=== PATIENT | male | born 1955 | race Caucasian/White ===

== ENCOUNTER 2019-04-25 22:31 | Inpatient (IN) ==
[2019-04-25 23:25] LABS: Basophils # (auto) 0.03 K/uL (0-0.2); Basophils % (auto) 0.3 %; Eosinophils # (auto) 0.15 K/uL (0-0.5); Eosinophils % (auto) 1.7 %; Hematocrit (blood only) 43.1 % (42-52); Hemoglobin 15.2 g/dL (14.0-18.0); Immature Granulocytes # (auto) 0.02 K/uL (0.00-0.02); Immature Granulocytes % (auto) 0.2 %; Lymphocytes # (auto) 2.62 K/uL (1.2-3.4); Lymphocytes % (auto) 29.5 %; Mean Corpuscular Hemoglobin 33.3 pg (25-34); Mean Corpuscular Hgb Conc 35.3 g/dL (32-36); Mean Corpuscular Volume 94.3 fL (80-100); Mean Platelet Volume 10.3 fL (7.4-10.4); Monocytes # (auto) 1.21 K/uL (0.11-0.59); Monocytes % (auto) 13.6 %; Neutrophils # (auto) 4.85 K/uL (1.4-6.5); Neutrophils % (auto) 54.7 %; Platelet Count 195 K/uL (130-400); RDW Coefficient of Variation 12.7 % (11.5-14.5); RDW Standard Deviation 43.8 fL (36.4-46.3); Red Blood Count 4.57 M/uL (4.7-6.1); White Blood Count 8.88 K/uL (4.8-10.8)
[2019-04-25 23:32] LABS: Alanine Aminotransferase 83 U/L (12-78); Albumin Level 3.6 gm/dl (3.4-5.0); Aspartate Aminotransferase 121 U/L (15-37); BUN Creatinine Ratio 4.9 (10-20); Blood Urea Nitrogen 4 mg/dl (7-18); Calcium 8.9 mg/dl (8.5-10.1); Carbon Dioxide 23 mmol/L (21-32); Chloride 100 mmol/L (98-107); Creatinine Clr Calc Pharmacy 110.7 ml/min; Est GFR (Non-African American) 93.2; Glucose 125 mg/dl (70-99); Potassium 2.8 mmol/L (3.5-5.1); Sodium 134 mmol/L (136-145)
[2019-04-25 23:37] LABS: Albumin Globulin Ratio 0.8 (0.9-2); Alkaline Phosphatase 116 U/L (45-117); Globulin 4.5 gm/dl (2.5-4.0); Total Protein 8.1 gm/dl (6.4-8.2); Troponin I < 0.015 ng/ml (0-0.045)
[2019-04-25] MEDS ORDERED: METOPROLOL TARTRATE 1 MG/ML VIAL IV PRN (23:43)
[2019-04-26] MEDS ORDERED: LORazepam 2 MG/4 ML VIAL IV STA (00:13)
[2019-04-26] MEDS ORDERED: MULTI-VITAMIN INFUSION 10 ML, THIAMINE HCL 100 MG, FOLIC ACID 1 MG in SODIUM CHLORIDE 0... IV ONE (00:19)
[2019-04-26] MEDS: POTASSIUM CHLORIDE / WTR 10 MEQ/100 ML PLCT IV SCH ×2 (00:47→01:51)
[2019-04-26] MEDS ORDERED: POTASSIUM CHLORIDE 10 MEQ TABCR PO STA ×2 (01:45→04:01)
[2019-04-26] MEDS ORDERED: GABAPENTIN 600 MG TAB PO STA (01:45)
[2019-04-26 02:02] LABS: Partial Thromboplastin Time 26.3 Seconds (21.0-31.0)
[2019-04-26 02:11] LABS: Magnesium 1.8 mg/dl (1.8-2.4)
[2019-04-26 03:09] LABS: Influenza A virus by PCR Neg for Influ A (Neg); Influenza B virus by PCR Neg for Influ B (Neg)
[2019-04-26] MEDS ORDERED: MAGNESIUM SULFATE / D5W 1 GM/100 ML BAG IV ONE (03:40)
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
--- NOTE | 2019-04-26 04:32 | Emergency Department Note ---
Entered by Bhargav Braxton acting as a scribe for History of Present Illness General Chief complaint: Cardiac Assessment Stated complaint: TACHY Time Seen by Provider: 04/25/19 23:24 Source: patient History of Present Illness Onset (ago): day(s) (today) Location: chest Pain Consistency: + constant Relieved By: + other ("stomach gurgling") Associated symptoms: + other (Positive for a cough and bilateral foot pain. Negative for changes in his bowels, leg swelling, and SOB.) The patient is a 64 year old male who presents to the emergency department with complaints of constant chest pain beginning today. The patient states that he has been congested for a few days. He notes that he feels like he has mucus in his chest and chest pain after he eats. He reports that his chest pain feels better after his stomach gurgles. He also complains of a cough and bilateral foot pain, but he denies any changes in his bowels, leg swelling, and SOB. The patient states that he has a history of asthma. He notes that he takes atenolol, but he is unsure if he took it today. Home Medications Home Medications Medication Instructions Recorded Confirmed Type albuterol sulfate [Ventolin HFA] 1 puff INHALATION Q4 PRN 04/25/19 04/25/19 History atenolol 50 mg PO DAILY 04/25/19 04/25/19 History atorvastatin 20 mg PO DAILY 04/25/19 04/25/19 History meloxicam 15 mg PO DAILY PRN 04/25/19 04/25/19 History Allergies Allergy/AdvReac Type Severity Reaction Status Date / Time codeine Allergy Unknown racing Verified 04/25/19 23:05 heart ANTIHISTAMINE Allergy Unknown heart Uncoded 04/25/19 23:05 racing Past Med/Surg History Family History (Updated 04/25/19 @ 23:40 by Bhargav Braxton) Other No significant family history Social History Preferred Language: Bulgarian Communication Ability: Impaired 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 and A total of 10 systems reviewed and were otherwise negative Physical Exam Vital Signs Vital Signs - 24 hr 04/25/19 22:38 04/25/19 22:55 04/25/19 23:18 Temperature 36.9 C Temperature Source Oral Pulse Rate 110 H 116 H Pulse Rate from SpO2 Sensor 113 H Respiratory Rate 18 18 Blood Pressure 185/123 H 198/128 H Blood Pressure Mean 143 161 Pulse Oximetry 97 97 95 Oxygen Delivery Method Room Air Room Air Sepsis Recent Fever Within 48 Hours No Sepsis New/Unexplained Change in Mental Status No Sepsis Action Taken by Nursing No Action Required 04/25/19 23:30 04/26/19 00:00 04/26/19 00:03 Temperature Temperature Source Pulse Rate 112 H 114 H 113 H Pulse Rate from SpO2 Sensor 112 H 113 H 112 H Respiratory Rate 18 18 18 Blood Pressure 199/128 H 197/141 H 198/133 H Blood Pressure Mean 137 156 151 Pulse Oximetry 95 95 95 Oxygen Delivery Method Sepsis Recent Fever Within 48 Hours Sepsis New/Unexplained Change in Mental Status Sepsis Action Taken by Nursing 04/26/19 00:05 04/26/19 00:10 04/26/19 00:15 Temperature Temperature Source Pulse Rate 110 H 108 H 104 H Pulse Rate from SpO2 Sensor 109 H 107 H 103 H Respiratory Rate 18 18 18 Blood Pressure 186/129 H 191/130 H 178/122 H Blood Pressure Mean 149 153 144 Pulse Oximetry 96 95 96 Oxygen Delivery Method Sepsis Recent Fever Within 48 Hours Sepsis New/Unexplained Change in Mental Status Sepsis Action Taken by Nursing 04/26/19 00:20 04/26/19 00:25 04/26/19 00:30 Temperature Temperature Source Pulse Rate 105 H 102 H 102 H Pulse Rate from SpO2 Sensor 104 H 102 H 102 H Respiratory Rate 18 18 18 Blood Pressure 187/120 H 172/111 H 169/113 H Blood Pressure Mean 137 127 121 Pulse Oximetry 96 96 96 Oxygen Delivery Method Sepsis Recent Fever Within 48 Hours Sepsis New/Unexplained Change in Mental Status Sepsis Action Taken by Nursing 04/26/19 00:35 04/26/19 00:40 04/26/19 00:45 Temperature Temperature Source Pulse Rate 104 H 106 H 101 H Pulse Rate from SpO2 Sensor 104 H 106 H 102 H Respiratory Rate 18 18 18 Blood Pressure 165/111 H 171/112 H 167/114 H Blood Pressure Mean 123 121 124 Pulse Oximetry 96 97 96 Oxygen Delivery Method Sepsis Recent Fever Within 48 Hours Sepsis New/Unexplained Change in Mental Status Sepsis Action Taken by Nursing 04/26/19 01:00 04/26/19 01:15 04/26/19 01:28 Temperature Temperature Source Pulse Rate 103 H 103 H 101 H Pulse Rate from SpO2 Sensor 103 H 102 H 101 H Respiratory Rate 18 18 18 Blood Pressure 164/112 H 170/106 H 171/110 H Blood Pressure Mean 140 120 125 Pulse Oximetry 97 97 98 Oxygen Delivery Method Sepsis Recent Fever Within 48 Hours Sepsis New/Unexplained Change in Mental Status Sepsis Action Taken by Nursing 04/26/19 01:30 04/26/19 01:45 04/26/19 02:00 Temperature Temperature Source Pulse Rate 101 H 99 H 90 Pulse Rate from SpO2 Sensor 102 H 99 H 91 H Respiratory Rate 18 18 20 Blood Pressure 173/115 H 159/89 H 148/83 H Blood Pressure Mean 125 114 99 Pulse Oximetry 99 96 97 Oxygen Delivery Method Sepsis Recent Fever Within 48 Hours Sepsis New/Unexplained Change in Mental Status Sepsis Action Taken by Nursing 04/26/19 02:15 04/26/19 02:16 04/26/19 02:45 Temperature Temperature Source Pulse Rate 94 H 96 H 103 H Pulse Rate from SpO2 Sensor 95 H 96 H 102 H Respiratory Rate 20 19 20 Blood Pressure 145/85 H 168/114 H Blood Pressure Mean 91 126 Pulse Oximetry 97 96 96 Oxygen Delivery Method Sepsis Recent Fever Within 48 Hours Sepsis New/Unexplained Change in Mental Status Sepsis Action Taken by Nursing 04/26/19 03:00 04/26/19 03:01 04/26/19 03:15 Temperature Temperature Source Pulse Rate 98 H 95 H 99 H Pulse Rate from SpO2 Sensor 98 H 95 H 99 H Respiratory Rate 20 17 19 Blood Pressure 150/107 H 150/105 H Blood Pressure Mean 118 116 Pulse Oximetry 96 96 97 Oxygen Delivery Method Sepsis Recent Fever Within 48 Hours Sepsis New/Unexplained Change in Mental Status Sepsis Action Taken by Nursing 04/26/19 03:30 04/26/19 03:45 04/26/19 04:00 Temperature Temperature Source Pulse Rate 104 H 99 H 106 H Pulse Rate from SpO2 Sensor 103 H 99 H 105 H Respiratory Rate 20 18 21 Blood Pressure 148/104 H 146/92 H 166/106 H Blood Pressure Mean 115 104 119 Pulse Oximetry 95 95 95 Oxygen Delivery Method Sepsis Recent Fever Within 48 Hours Sepsis New/Unexplained Change in Mental Status Sepsis Action Taken by Nursing 04/26/19 04:01 04/26/19 04:19 Temperature Temperature Source Pulse Rate 102 H 98 H Pulse Rate from SpO2 Sensor 102 H Respiratory Rate 20 18 Blood Pressure 146/103 H Blood Pressure Mean Pulse Oximetry 95 95 Oxygen Delivery Method Room Air Sepsis Recent Fever Within 48 Hours Sepsis New/Unexplained Change in Mental Status Sepsis Action Taken by Nursing Vital signs reviewed. Hypertensive. General: Well-appearing male, in no significant distress. HEENT: No scleral icterus, PERRLA, neck supple. Atraumatic. Cardiovascular: Regular rhythm and tachycardic, no extra sounds. Pulmonary: Clear to auscultation bilaterally, normal work of breathing. Abdomen: Soft, nontender, nondistended, positive bowel sounds. Obese abdomen. Musculoskeletal: Atraumatic, no peripheral edema. Neurologic: Patient awake alert and oriented x 3 Skin: Warm, dry, no rash Course Course 2314: The patient was evaluated in room C10. A complete history and physical exam was performed. 0141: I reevaluated and updated the patient. 0142: Upon reevaluation, the patient is stable. I discussed the findings and the treatment plan with the patient. He expresses agreement and understanding. I spoke with Dr. Barbour of the [facility]. The patient will be evaluated for further management. Consultations Consultation #1: I [facility] the [facility] He will evaluate the patient for further management. Time: 01:42 Administered Medications Acetaminophen (Tylenol) 325 mg PO Q6H PRN PRN Reason: Pain or Fever Stop: 05/26/19 04:32 Last Admin: 04/27/19 22:54 Dose: 325 mg Documented by: [id number] Admin: 04/27/19 17:49 Dose: 325 mg Documented by: [id number] Admin: 04/27/19 04:53 Dose: 325 mg Documented by: [id number] Admin: 04/26/19 19:58 Dose: 325 mg Documented by: [id number] Atenolol (Tenormin) 50 mg PO DAILY DONAL Stop: 05/26/19 01:44 Last Admin: 04/28/19 09:18 Dose: 50 mg Documented by: [id number] Admin: 04/27/19 09:18 Dose: 50 mg Documented by: [id number] Admin: 04/26/19 04:52 Dose: 50 mg Documented by: [id number] Clonidine HCl (Catapres) 0.1 mg PO TID PRN PRN Reason: Hypertension Stop: 05/26/19 14:43 Last Admin: 04/27/19 13:19 Dose: 0.1 mg Documented by: [id number] Diclofenac Sodium (Voltaren 1% Top) 4 gm EXT QID [facility] Stop: 05/28/19 10:59 Last Admin: 04/28/19 16:30 Dose: 4 gm Documented by: [id number] Admin: 04/28/19 13:00 Dose: 4 gm Documented by: [id number] Admin: 04/28/19 11:48 Dose: 4 gm Documented by: [id number] Doxycycline Hyclate (Vibramycin) 100 mg PO BID [facility] Stop: 05/03/19 04:32 Last Admin: 04/28/19 09:19 Dose: 100 mg Documented by: [id number] Admin: 04/27/19 20:17 Dose: 100 mg Documented by: [id number] Admin: 04/27/19 09:18 Dose: 100 mg Documented by: [id number] Admin: 04/26/19 19:59 Dose: 100 mg Documented by: [id number] Admin: 04/26/19 04:53 Dose: 100 mg Documented by: [id number] Enoxaparin Sodium (Lovenox) 40 mg SQ QAM [facility] Stop: 05/26/19 08:59 Last Admin: 04/28/19 09:19 Dose: 40 mg Documented by: [id number] Admin: 04/27/19 09:19 Dose: 40 mg Documented by: [id number] Admin: 04/26/19 08:54 Dose: 40 mg Documented by: [id number] Folic Acid (Folvite) 1 mg PO QAM [facility] Stop: 05/27/19 08:59 Last Admin: 04/28/19 09:20 Dose: 1 mg Documented by: [id number] Admin: 04/27/19 09:19 Dose: 1 mg Documented by: [id number] Potassium Chloride/Sodium Chloride (Normal Saline W/20 Meq Kcl) 20 meq in 1,000 mls @ 80 mls/hr IV .[id number] ONE Stop: 04/28/19 18:05 Last Admin: 04/28/19 06:33 Dose: 80 mls/hr Documented by: [id number] Ceftriaxone Sodium 2,000 mg/ (Dextrose) 70 mls @ 100 mls/hr IV Q24H [facility]; Protocol Stop: 05/05/19 06:59 Last Infusion: 04/28/19 09:20 Dose: 0 mls/hr Documented by: [id number] Admin: 04/28/19 08:01 Dose: 100 mls/hr Documented by: [id number] Lorazepam (Ativan) 1 mg PO Q4H PRN PRN Reason: Anxiety Stop: 05/26/19 13:40 Last Admin: 04/26/19 13:51 Dose: 1 mg Documented by: [id number] [facility] Stop: 05/26/19 08:59 Last Admin: 04/28/19 09:19 Dose: 1 tab Documented by: [id number] Admin: 04/27/19 09:18 Dose: 1 tab Documented by: [id number] Admin: 04/26/19 08:54 Dose: 1 tab Documented by: [id number] Thiamine HCl (Vitamin B-1) [facility] Stop: 05/27/19 08:59 Last Admin: 04/28/19 09:19 Dose: 100 mg Documented by: [id number] Admin: 04/27/19 09:18 Dose: 100 mg Documented by: [id number] Discontinued Medications Atenolol (Tenormin) 50 mg PO NOW ONE Stop: 04/26/19 05:29 Last Admin: 04/26/19 06:04 Dose: Not Given Documented by: [id number] Atenolol (Tenormin) 50 mg PO NOW ONE Stop: 04/26/19 08:16 Last Admin: 04/26/19 08:55 Dose: 50 mg Documented by: [id number] Atorvastatin Calcium (Lipitor) 20 mg PO DAILY [facility] Stop: 05/26/19 08:59 Last Admin: 04/26/19 08:53 Dose: 20 mg Documented by: [id number] Clonidine HCl (Catapres) 0.1 mg PO NOW ONE Stop: 04/26/19 14:44 Last Admin: 04/26/19 14:56 Dose: 0.1 mg Documented by: [id number] Gabapentin (Neurontin) 1,200 mg PO NOW STA Stop: 04/26/19 01:46 Last Admin: 04/26/19 02:24 Dose: 1,200 mg Documented by: [id number] Gabapentin (Neurontin) 600 mg PO Q6H [facility] Stop: 04/26/19 14:01 Last Admin: 04/26/19 13:50 Dose: 600 mg Documented by: [id number] Admin: 04/26/19 08:54 Dose: 600 mg Documented by: [id number] Gabapentin (Neurontin) 600 mg PO Q8H [facility] Stop: 04/27/19 14:01 Last Admin: 04/27/19 13:20 Dose: 600 mg Documented by: [id number] Admin: 04/27/19 04:54 Dose: 600 mg Documented by: [id number] Admin: 04/26/19 22:18 Dose: 600 mg Documented by: [id number] Gabapentin (Neurontin) 600 mg PO Q12H [facility] Stop: 04/28/19 12:01 Last Admin: 04/28/19 11:48 Dose: 600 mg Documented by: [id number] Admin: 04/27/19 23:56 Dose: 600 mg Documented by: [id number] Lorazepam (Ativan) 2 mg in 4 mls @ 4 mls/min IV NOW STA Stop: 04/26/19 00:14 Last Admin: 04/26/19 00:18 Dose: 4 mls/min Documented by: [id number] Multivitamins 10 ml/ Thiamine HCl 100 mg/ Folic Acid 1 mg/Sodium Chloride 1,011.2 mls @ 1,011.2 mls/hr IV .Q1H ONE Stop: 04/26/19 01:18 Last Infusion: 04/26/19 04:34 Dose: 0 mls/hr Documented by: [id number] Admin: 04/26/19 00:47 Dose: 1,011.2 mls/hr Documented by: [id number] Potassium Chloride (K Braeden / Wtr) 10 meq in 100 mls @ 100 mls/hr IV Q1H [facility] Stop: 04/26/19 02:29 Last Infusion: 04/26/19 03:02 Dose: 0 mls/hr Documented by: [id number] Admin: 04/26/19 01:51 Dose: 100 mls/hr Documented by: [id number] Infusion: 04/26/19 01:47 Dose: 100 mls/hr Documented by: [id number] Admin: 04/26/19 00:47 Dose: 100 mls/hr Documented by: [id number] Magnesium Sulfate/Dextrose (Magnesium Sulfate / D5w) 1 gm in 100 mls @ 100 mls/hr IV ONE ONE Stop: 04/26/19 04:39 Last Infusion: 04/26/19 05:49 Dose: 0 mls/hr Documented by: [id number] Admin: 04/26/19 04:34 Dose: 100 mls/hr Documented by: [id number] Potassium Chloride 40 meq/ (Sodium Chloride) 1,020 mls @ 50 mls/hr IV .[id number] STA Stop: 04/27/19 00:56 Last Infusion: 04/27/19 01:17 Dose: 0 mls/hr Documented by: [id number] Admin: 04/26/19 04:53 Dose: 50 mls/hr Documented by: [id number] Magnesium Sulfate/Dextrose (Magnesium Sulfate / D5w) 1 gm in 100 mls @ 100 mls/hr IV 1900 ONE Stop: 04/27/19 19:59 Last Infusion: 04/27/19 20:47 Dose: 0 mls/hr Documented by: [id number] Admin: 04/27/19 19:29 Dose: 100 mls/hr Documented by: [id number] Lactated Ringer's (Lr) 1,000 mls @ 500 mls/hr IV .Q2H ONE Stop: 04/28/19 01:13 Last Infusion: 04/28/19 01:58 Dose: 0 mls/hr Documented by: [id number] Admin: 04/27/19 23:47 Dose: 500 mls/hr Documented by: [id number] Lorazepam (Ativan) 1 mg PO NOW STA Stop: 04/26/19 11:28 Last Admin: 04/26/19 11:31 Dose: 1 mg Documented by: [id number] Lorazepam (Ativan) Confirm Administered Dose 1 mg .ROUTE .STK-MED ONE Stop: 04/26/19 11:32 Last Admin: 04/26/19 11:32 Dose: Not Given Documented by: [id number] Lorazepam (Ativan) 1 mg PO NOW STA Stop: 04/27/19 14:07 Last Admin: 04/27/19 14:46 Dose: 1 mg Documented by: [id number] Meloxicam (Mobic) 7.5 mg PO NOW STA Stop: 04/27/19 14:16 Last Admin: 04/27/19 15:32 Dose: 7.5 mg Documented by: [id number] Meloxicam (Mobic) 7.5 mg PO QA DONAL Stop: 05/27/19 18:14 Last Admin: 04/27/19 19:26 Dose: 7.5 mg Documented by: [id number] Metoprolol Tartrate (Lopressor) 5 mg IV Q5M PRN PRN Reason: Tachycardia Stop: 05/25/19 23:42 Last Admin: 04/26/19 00:01 Dose: 5 mg Documented by: [id number] Metoprolol Tartrate (Lopressor) 5 mg IV NOW STA Stop: 04/26/19 04:34 Last Admin: 04/26/19 04:53 Dose: 5 mg Documented by: [id number] Potassium Chloride (Klor-Con M10) 50 meq PO NOW STA Stop: 04/26/19 01:46 Last Admin: 04/26/19 02:24 Dose: 50 meq Documented by: [id number] Potassium Chloride (Klor-Con M10) 50 meq PO NOW STA Stop: 04/26/19 04:02 Last Admin: 04/26/19 04:20 Dose: 50 meq Documented by: [id number] Potassium Chloride (Klor-Con M20) 40 meq PO NOW STA Stop: 04/27/19 18:22 Last Admin: 04/27/19 19:27 Dose: 40 meq Documented by: [id number] Potassium Chloride (Klor-Con M20) 40 meq PO NOW STA Stop: 04/28/19 14:55 Last Admin: 04/28/19 16:29 Dose: 40 meq Documented by: [id number] Medical Decision Making Differential Diagnosis Differential diagnosis: Etiologies such as shingles, musculoskeletal pain, pericarditis, myocarditis, cardiac ischemia, pericardial tamponade, pneumonia, pneumothorax, pleural effusion, hemothorax, pleurisy, aortic pathology, pulmonary embolism, intra- abdominal process, as well as others were considered. Medical Records Attestation: I reviewed the patient's medical records. Home Medications Current Medication List: was personally reviewed by me Laboratory Data Attestation: I reviewed the patient's lab results. Result diagrams: 04/28/19 11:06 04/28/19 11:06 Lab Results 04/25/19 04/25/19 04/25/19 Range/Units Unknown Unknown Unknown WBC 8.88 (4.8-10.8) K/uL RBC 4.57 L (4.7-6.1) M/uL Hgb 15.2 (14.0-18.0) g/dL Hct 43.1 (42-52) % MCV 94.3 (80-100) fL MCH 33.3 (25-34) pg MCHC 35.3 (32-36) g/dL RDW Std Deviation 43.8 (36.4-46.3) fL RDW Coeff of Chris 12.7 (11.5-14.5) % Plt Count 195 (130-400) K/uL MPV 10.3 (7.4-10.4) fL Immature Gran % (Auto) 0.2 % Neut % (Auto) 54.7 % Lymph % (Auto) 29.5 % [place] % (Auto) 13.6 % Eos % (Auto) 1.7 % Baso % (Auto) 0.3 % Immature Gran # (Auto) 0.02 (0.00-0.02) K/uL Neut # (Auto) 4.85 (1.4-6.5) K/uL Lymph # (Auto) 2.62 (1.2-3.4) K/uL [place] # (Auto) 1.21 H (0.11-0.59) K/uL Eos # (Auto) 0.15 (0-0.5) K/uL Baso # (Auto) 0.03 (0-0.2) K/uL APTT 26.3 (21.0-31.0) Seconds PTT Ratio 1.0 Sodium 134 L (136-145) mmol/L Potassium 2.8 L (3.5-5.1) mmol/L Chloride 100 (98-107) mmol/L Carbon Dioxide 23 (21-32) mmol/L Anion Gap 11.0 (3-11) BUN 4 L (7-18) mg/dl Creatinine 0.84 (0.6-1.4) mg/dl Est Cr Clr Drug Dosing 110.7 ml/min Est GFR ( Amer) 108.0 Est GFR (Non-Af Amer) 93.2 BUN/Creatinine Ratio 4.9 L (10-20) Glucose 125 H (70-99) mg/dl Calcium 8.9 (8.5-10.1) mg/dl Magnesium 1.8 (1.8-2.4) mg/dl Total Bilirubin 1.0 (0.2-1) mg/dl AST 121 H (15-37) U/L ALT 83 H (12-78) U/L Alkaline Phosphatase 116 (45-117) U/L Troponin I < 0.015 (0-0.045) ng/ml Total Protein 8.1 (6.4-8.2) gm/dl Albumin 3.6 (3.4-5.0) gm/dl Globulin 4.5 H (2.5-4.0) gm/dl Albumin/Globulin Ratio 0.8 L (0.9-2) TSH 3.830 (0.300-4.500) uIu/ml Ethyl Alcohol mg/dL (0-3) mg/dl Influenza Type A (PCR) (Neg) Influenza Type B (PCR) (Neg) 04/26/19 04/26/19 Range/Units 00:54 02:30 WBC (4.8-10.8) K/uL RBC (4.7-6.1) M/uL Hgb (14.0-18.0) g/dL Hct (42-52) % MCV (80-100) fL MCH (25-34) pg MCHC (32-36) g/dL RDW Std Deviation (36.4-46.3) fL RDW Coeff of Chris (11.5-14.5) % Plt Count (130-400) K/uL MPV (7.4-10.4) fL Immature Gran % (Auto) % Neut % (Auto) % Lymph % (Auto) % [place] % (Auto) % Eos % (Auto) % Baso % (Auto) % Immature Gran # (Auto) (0.00-0.02) K/uL Neut # (Auto) (1.4-6.5) K/uL Lymph # (Auto) (1.2-3.4) K/uL [place] # (Auto) (0.11-0.59) K/uL Eos # (Auto) (0-0.5) K/uL Baso # (Auto) (0-0.2) K/uL APTT (21.0-31.0) Seconds PTT Ratio Sodium (136-145) mmol/L Potassium (3.5-5.1) mmol/L Chloride (98-107) mmol/L Carbon Dioxide (21-32) mmol/L Anion Gap (3-11) BUN (7-18) mg/dl Creatinine (0.6-1.4) mg/dl Est Cr Clr Drug Dosing ml/min Est GFR ( Amer) Est GFR (Non-Af Amer) BUN/Creatinine Ratio (10-20) Glucose (70-99) mg/dl Calcium (8.5-10.1) mg/dl Magnesium (1.8-2.4) mg/dl Total Bilirubin (0.2-1) mg/dl AST (15-37) U/L ALT (12-78) U/L Alkaline Phosphatase (45-117) U/L Troponin I (0-0.045) ng/ml Total Protein (6.4-8.2) gm/dl Albumin (3.4-5.0) gm/dl Globulin (2.5-4.0) gm/dl Albumin/Globulin Ratio (0.9-2) TSH (0.300-4.500) uIu/ml Ethyl Alcohol mg/dL < 3.0 (0-3) mg/dl Influenza Type A (PCR) Neg for Influ A (Neg) Influenza Type B (PCR) Neg for Influ B (Neg) Imaging Data Attestation: I personally reviewed and interpreted this imaging study as follows: My Impression: CHEST X-RAY: No focal lung consolidation. No failure. Normal mediastinal silhouette. ECG Data Attestation: I personally reviewed and interpreted this ECG as follows: Indication: + chest pain Rate (beats per minute): 110 Rhythm: + sinus tachycardia ECG ST segments: no ST depression and no ST elevation ECG Findings: + PACs Additional Comments: Previous inferior infarct, prolonged QT at 470. Blood Pressure Blood Pressure Findings: Elevated blood pressure Blood Pressure Disposition: further management by hospitalist MDM Narrative This pt was evaluated and appeared to be in no significant distress. Pt is noted to be tachycardic and hypertensive. Pt has a h/o ETOH dependency, he was given IV banana bag. He was also given IV ativan. Pt later stated he failed to take his atenolol today, was given IV metoprolol 5 mg. EKG reveals no acute ischemia, with ST. Previous inferior infarct. CXR is clear. Lab work is significant for hypokalemia at 2.8. Pt was given 20 Meq K IV. Trop is negative. Given ETOH history and C/P complaints, the hospitalist service was consulted for further management. Pt understands and agrees. Impression & Plan Hypertensive urgency, Alcohol withdrawal, Substernal chest pain, Hypokalemia Discharge Plan Visit Data *Final* Discharge Date/Time: 04/26/19 04:19 Chief Complaint: Cardiac Assessment Stated Complaint: TACHY ED Provider: Deanna Plunkett Discharge Problem: Hypertensive urgency, Alcohol withdrawal, Substernal chest pain, Hypokalemia Patient Disposition: Admitted As Inpatient Discharge Instructions Interventions: ED Discharge Assessment Last Done: 04/26/19 04:19 Discharge Problem: Alcohol withdrawal Qualifiers: Complication of substance-induced condition: with unspecified complication Qualified Code(s): F10.239 - Alcohol dependence with withdrawal, unspecified The scribe's documentation has been prepared under my direction and personally reviewed by me in its entirety. I confirm that the note above accurately reflects all work, treatment, procedures, and medical decision making performed by me.
[2019-04-26] MEDS ORDERED: XOPENEX/ATROVENT 1.25mg/0.5MG NEB COMBO NEB PRN (04:33)
[2019-04-26] MEDS ORDERED: LORazepam 2 MG/4 ML VIAL IV PRN (04:33)
[2019-04-26] MEDS ORDERED: ATIVAN IV ALCOHOL WITHDRAWL IV PRN (04:33)
[2019-04-26] MEDS ORDERED: LEVALBUTEROL 1.25MG/0.5ML NEB INH PRN (04:33)
[2019-04-26] MEDS ORDERED: GABAPENTIN 1200MG ALCOHOL WITHDRAWAL LOAD PO STA (04:33)
[2019-04-26] MEDS ORDERED: METOPROLOL TARTRATE 1 MG/ML VIAL IV STA (04:33)
[2019-04-26] MEDS ORDERED: IPRATROPIUM BROMIDE NEB SOLN 0.02% 2.5 ML VIAL INH PRN (04:33)
[2019-04-26] MEDS ORDERED: POTASSIUM CHLORIDE 40 MEQ in SODIUM CHLORIDE 0.9% 1000ML 1,000 ML IV STA (04:33)
[2019-04-26] MEDS ORDERED: LORazepam 3 MG/6 ML VIAL IV PRN (04:33)
[2019-04-26] MEDS ORDERED: LORazepam 1 MG/2 ML VIAL IV PRN (04:33)
[2019-04-26] MEDS: ATENOLOL 50 MG TABLET PO SCH (04:52)
[2019-04-26] MEDS: DOXYCYCLINE HYCLATE 100 MG CAP PO SCH ×2 (04:53→19:59)
[2019-04-26] MEDS ORDERED: ATENOLOL 50 MG TABLET PO ONE ×2 (05:28→08:15)
--- NOTE | 2019-04-26 06:19 | XRay Report ---
XR chest 1V portable HISTORY: 64 years-old Male tachycardia acute tachycardia COMPARISON: None available TECHNIQUE: Portable AP view of the chest FINDINGS: Cardiomediastinal and hilar silhouettes are within normal limits. No pneumothorax, pleural effusion, focal airspace consolidation or overt pulmonary edema. Mild degenerative changes of the spine. IMPRESSION: No acute process. The above report was generated using voice recognition software. It may contain grammatical, syntax o r spelling errors. Electronically signed by: Santos Jc M.D. 04/26/2019 6:18 AM
[2019-04-26 06:37] LABS: Basophils # (auto) 0.04 K/uL (0-0.2); Basophils % (auto) 0.4 %; Eosinophils # (auto) 0.06 K/uL (0-0.5); Eosinophils % (auto) 0.6 %; Hematocrit (blood only) 38.8 % (42-52); Hemoglobin 13.3 g/dL (14.0-18.0); Immature Granulocytes # (auto) 0.03 K/uL (0.00-0.02); Immature Granulocytes % (auto) 0.3 %; Lymphocytes # (auto) 2.25 K/uL (1.2-3.4); Lymphocytes % (auto) 24.4 %; Mean Corpuscular Hemoglobin 32.8 pg (25-34); Mean Corpuscular Hgb Conc 34.3 g/dL (32-36); Mean Corpuscular Volume 95.8 fL (80-100); Mean Platelet Volume 9.7 fL (7.4-10.4); Monocytes # (auto) 1.24 K/uL (0.11-0.59); Monocytes % (auto) 13.4 %; Neutrophils # (auto) 5.62 K/uL (1.4-6.5); Neutrophils % (auto) 60.9 %; Platelet Count 146 K/uL (130-400); RDW Coefficient of Variation 12.8 % (11.5-14.5); RDW Standard Deviation 44.7 fL (36.4-46.3); Red Blood Count 4.05 M/uL (4.7-6.1); White Blood Count 9.24 K/uL (4.8-10.8)
[2019-04-26 07:11] LABS: Albumin Level 2.9 gm/dl (3.4-5.0); BUN Creatinine Ratio 3.9 (10-20); Bilirubin Direct 0.3 mg/dl (0-0.2); Bilirubin,Total 1.1 mg/dl (0.2-1); Calcium 8.3 mg/dl (8.5-10.1); Creatinine Clr Calc Pharmacy 101.7 ml/min; Est GFR (African American) 103.6; Est GFR (Non-African American) 89.4; Potassium 3.9 mmol/L (3.5-5.1); Total Protein 6.7 gm/dl (6.4-8.2)
[2019-04-26] MEDS: ENOXAPARIN INJ 40 MG/0.4 ML SYR SQ SCH (08:54)
[2019-04-26] MEDS: GABAPENTIN 600 MG TAB PO SCH ×3 (08:54→22:18)
[2019-04-26] MEDS: MULTIVITAMIN TAB PO SCH (08:54)
[2019-04-26] MEDS ORDERED: ATORVASTATIN 20 MG TAB PO SCH (09:00)
[2019-04-26] MEDS ORDERED: LORazepam 1 MG TAB PO STA (11:27)
[2019-04-26] MEDS ORDERED: LORazepam 1 MG TAB ONE (11:31)
[2019-04-26] MEDS: LORazepam 1 MG TAB PO PRN (13:51)
[2019-04-26] MEDS ORDERED: cloNIDine HCL 0.1 MG TAB PO ONE (14:43)
[2019-04-26] MEDS: ACETAMINOPHEN 325 MG TAB PO PRN (19:58)
--- NOTE | 2019-04-26 20:21 | Hospitalist Progress Note ---
Date of Service April 26, 2019 Subjective Patient seen and examined at the bedside. Patient is lying in bed, comfortable, however quite hypertensive, and occasionally slightly tachycardic. After 1 mg of p.o. Ativan blood pressure decreased. Patient says that he was previously hospitalized here because he passed out from drinking years ago. He was seeing a therapist for alcohol use. He decided to quit drinking, which I encouraged him to continue to do so however safely. Explained the reason why we are giving him Ativan. As hypertension not completely controlled, added clonidine as needed. Denies any visual or auditory hallucinations. Denies any prior history of seizures. Denies any abdominal pain nausea, vomiting, headache, chest pain, palpitations, shortness of breath. Lungs are clear to auscultation bilaterally, without any wheezing, abdomen is soft nontender nondistended, heart sounds are regular but slightly tachycardic. We will continue to closely monitor. Results & Data Vital Signs (Past 12 Hours) Vital Signs Temp Pulse Resp BP BP Pulse Ox 04/26/19 19:55 37.4 C 105 H 18 146/87 H 04/26/19 15:56 158/94 H 04/26/19 15:09 36.7 C 93 H 20 192/106 H 96 04/26/19 14:30 186/113 H 04/26/19 12:03 184/108 H 04/26/19 11:16 36.6 C 80 18 199/114 H 200/104 H 98
[2019-04-27] MEDS: ACETAMINOPHEN 325 MG TAB PO PRN ×3 (04:53→22:54)
[2019-04-27] MEDS: GABAPENTIN 600 MG TAB PO SCH ×3 (04:54→23:56)
[2019-04-27] MEDS: ATENOLOL 50 MG TABLET PO SCH (09:18)
[2019-04-27] MEDS: THIAMINE HCL 100 MG TAB PO SCH (09:18)
[2019-04-27] MEDS: MULTIVITAMIN TAB PO SCH (09:18)
[2019-04-27] MEDS: DOXYCYCLINE HYCLATE 100 MG CAP PO SCH ×2 (09:18→20:17)
[2019-04-27] MEDS: ENOXAPARIN INJ 40 MG/0.4 ML SYR SQ SCH (09:19)
[2019-04-27] MEDS: FOLIC ACID 1 MG TAB PO SCH (09:19)
[2019-04-27] MEDS: cloNIDine HCL 0.1 MG TAB PO PRN (13:19)
[2019-04-27] MEDS ORDERED: LORazepam 1 MG TAB PO STA (14:06)
[2019-04-27] MEDS ORDERED: MELOXICAM 7.5 MG TAB PO STA (14:15)
--- NOTE | 2019-04-27 15:18 | Hospitalist Progress Note ---
Date of Service April 27, 2019 Assessment & Plan (1) Palpitations: and hypertension Multifactorial : Hypertensive urgency from alcohol withdrawal, missed beta-brendan dose Anxiety, personal stress, hypokalemia contributory Complicated bronchitis, no sepsis -Provided with oral Ativan as needed, and clonidine for uncontrolled hypertension -blood pressure then much improved -Restarted home beta-brendan, may need titration -Continue to closely monitor on telemetry -DT precautions, anxiolytic PRN -Follow LFTs, GI consult with progression Hypokalemia, Hypomagnesemia - replete and monitor Hyperlipidemia on statin Rx Alcoholic hepatitis -Follow LFTs, GI consult with progression Complicated bronchitis -Continue doxycycline Leukocytosis - mild - increased from yesterday, patient already on doxycycline, for bronchitis - no signs of any worsening, no worsening cough, no fever - will re-check tmrw and will cont. to closely monitor Mood disorder, stable, patient prefers stable off medications. Prediabetes -as per records -recent outpatient hemoglobin A1c of 6.20 December 2018 past tobacco abuse DVT prophylaxis: Lovenox subcu Full code Subjective Patient is lying in bed, in no acute distress. Denies any fevers, chills, headaches, chest pain, palpitations, shortness of breath, abdominal pain, nausea or vomiting. He also denies any visual or auditory hallucinations. 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 He says he takes meloxicam for that, says that previously was evaluated by orthopedics. At that time meloxicam was recommended and he takes it on as-needed basis. Yesterday patient was quite hypertensive, received Ativan, and clonidine which much improved his blood pressure. Review of Systems Review of Systems: All systems reviewed & are unremarkable except as noted in HPI & below Constitutional: no fever and no chills Respiratory: no cough, no dyspnea, no hemoptysis and no pain on inspiration Cardiovascular: no chest pain, no palpitations and no edema Gastrointestinal: no abdominal pain, no nausea and no vomiting Physical Exam Physical Exam: GENERAL: Laying in bed, in no acute distress HEENT: Normocephalic, atraumatic, PERRL, EOMI, pink palpebral conjunctivae, dry oral mucosa NECK : Supple, normal to inspection, no lad CHEST : Normal to inspection HEART : RRR, no murmurs noted ABDOMEN: soft, non-distended, nontender to palpation, + bowel sounds EXTREMITIES : No LE swelling/tenderness,Moves all 4 extremities spontaneously and without difficulty, has mild tremor in both hands SKIN: Normal color, warm NEUROLOGIC : Alert and oriented x3,, no facial asymmetry, speech fluent, mildly tremulous irene. hands, moves all 4 extremities spontaneously Results & Data Vital Signs (Past 12 Hours) Vital Signs Temp Pulse Resp BP Pulse Ox 04/27/19 14:52 37.2 C 93 H 20 161/85 H 96 04/27/19 11:20 36.8 C 89 18 181/96 H 96 04/27/19 07:27 36.7 C 90 18 156/89 H 96 04/27/19 05:51 148/86 H 04/27/19 04:58 36.4 C L 84 18 172/92 H 97 Laboratory Results 04/27/19 04/27/19 Range/Units 16:25 16:25 WBC 13.69 H (4.8-10.8) K/uL RBC 3.83 L (4.7-6.1) M/uL Hgb 12.7 L (14.0-18.0) g/dL Hct 37.1 L (42-52) % MCV 96.9 (80-100) fL MCH 33.2 (25-34) pg MCHC 34.2 (32-36) g/dL RDW Std Deviation 45.1 (36.4-46.3) fL RDW Coeff of Chris 12.8 (11.5-14.5) % Plt Count 146 (130-400) K/uL MPV 9.8 (7.4-10.4) fL Immature Gran % (Auto) 0.4 % Neut % (Auto) 66.6 % Lymph % (Auto) 19.1 % [place] % (Auto) 13.5 % Eos % (Auto) 0.2 % Baso % (Auto) 0.2 % Immature Gran # (Auto) 0.05 H (0.00-0.02) K/uL Neut # (Auto) 9.11 H (1.4-6.5) K/uL Lymph # (Auto) 2.62 (1.2-3.4) K/uL [place] # (Auto) 1.85 H (0.11-0.59) K/uL Eos # (Auto) 0.03 (0-0.5) K/uL Baso # (Auto) 0.03 (0-0.2) K/uL Sodium 132 L (136-145) mmol/L Potassium 3.4 L (3.5-5.1) mmol/L Chloride 103 (98-107) mmol/L Carbon Dioxide 22 (21-32) mmol/L Anion Gap 7.0 (3-11) BUN 7 (7-18) mg/dl Creatinine 0.81 (0.6-1.4) mg/dl Est Cr Clr Drug Dosing 113.8 ml/min Est GFR ( Amer) 109.6 Est GFR (Non-Af Amer) 94.6 BUN/Creatinine Ratio 8.2 L (10-20) Glucose 141 H (70-99) mg/dl Calcium 8.7 (8.5-10.1) mg/dl Magnesium 1.7 L (1.8-2.4) mg/dl Medications Administered Current Inpatient Medications Acetaminophen (Tylenol) 325 mg PO Q6H PRN PRN Reason: Pain or Fever Stop: 05/26/19 04:32 Last Admin: 04/27/19 04:53 Dose: 325 mg Documented by: Atenolol (Tenormin) 50 mg PO DAILY [facility] Stop: 05/26/19 01:44 Last Admin: 04/27/19 09:18 Dose: 50 mg Documented by: Clonidine HCl (Catapres) 0.1 mg PO TID PRN PRN Reason: Hypertension Stop: 05/26/19 14:43 Last Admin: 04/27/19 13:19 Dose: 0.1 mg Documented by: Doxycycline Hyclate (Vibramycin) 100 mg PO BID [facility] Stop: 05/03/19 04:32 Last Admin: 04/27/19 09:18 Dose: 100 mg Documented by: Enoxaparin Sodium (Lovenox) 40 mg SQ QAM [facility] Stop: 05/26/19 08:59 Last Admin: 04/27/19 09:19 Dose: 40 mg Documented by: Folic Acid (Folvite) 1 mg PO QAM [facility] Stop: 05/27/19 08:59 Last Admin: 04/27/19 09:19 Dose: 1 mg Documented by: Gabapentin (Neurontin) 600 mg PO Q12H [facility] Stop: 04/28/19 12:01 Gabapentin (Neurontin) 600 mg PO Q24H [facility] Stop: 04/29/19 12:01 Lorazepam (Ativan) 1 mg in 2 mls @ 2 mls/min IV UD PRN; Protocol PRN Reason: EtOH Withdrawl AWSS Score 6,7 Stop: 05/26/19 04:32 Lorazepam (Ativan) 2 mg in 4 mls @ 4 mls/min IV UD PRN; Protocol PRN Reason: EtOH Withdrawl AWSS Score 8,9 Stop: 05/26/19 04:32 Lorazepam (Ativan) 3 mg in 6 mls @ 4 mls/min IV ONCE PRN; Protocol PRN Reason: EtOH Withdrawl AWSS Score >=10 Stop: 05/26/19 04:32 Ipratropium [place] (Atrovent 0.02% 0.5mg/2.5ml) 0.5 mg INH Q4H PRN PRN Reason: Shortness Of Breath Or Wheezing Stop: 05/26/19 04:32 Levalbuterol HCl (Xopenex 1.25mg/0.5ml Neb) 1.25 mg INH Q4H PRN PRN Reason: Shortness Of Breath Or Wheezing Stop: 05/26/19 04:32 Lorazepam (Ativan) 1 mg PO Q4H PRN PRN Reason: Anxiety Stop: 05/26/19 13:40 Last Admin: 04/26/19 13:51 Dose: 1 mg Documented by: Multivitamins (Multivitamin Tab) 1 tab PO [facility] Stop: 05/26/19 08:59 Last Admin: 04/27/19 09:18 Dose: 1 tab Documented by: Thiamine HCl (Vitamin B-1) 100 mg PO [facility] Stop: 05/27/19 08:59 Last Admin: 04/27/19 09:18 Dose: 100 mg Documented by:
[2019-04-27 16:34] LABS: Basophils # (auto) 0.03 K/uL (0-0.2); Basophils % (auto) 0.2 %; Eosinophils # (auto) 0.03 K/uL (0-0.5); Eosinophils % (auto) 0.2 %; Hematocrit (blood only) 37.1 % (42-52); Hemoglobin 12.7 g/dL (14.0-18.0); Immature Granulocytes # (auto) 0.05 K/uL (0.00-0.02); Immature Granulocytes % (auto) 0.4 %; Lymphocytes # (auto) 2.62 K/uL (1.2-3.4); Lymphocytes % (auto) 19.1 %; Mean Corpuscular Hemoglobin 33.2 pg (25-34); Mean Corpuscular Hgb Conc 34.2 g/dL (32-36); Mean Corpuscular Volume 96.9 fL (80-100); Mean Platelet Volume 9.8 fL (7.4-10.4); Monocytes # (auto) 1.85 K/uL (0.11-0.59); Monocytes % (auto) 13.5 %; Neutrophils # (auto) 9.11 K/uL (1.4-6.5); Neutrophils % (auto) 66.6 %; Platelet Count 146 K/uL (130-400); RDW Coefficient of Variation 12.8 % (11.5-14.5); RDW Standard Deviation 45.1 fL (36.4-46.3); Red Blood Count 3.83 M/uL (4.7-6.1); White Blood Count 13.69 K/uL (4.8-10.8)
[2019-04-27 16:51] LABS: BUN Creatinine Ratio 8.2 (10-20); Calcium 8.7 mg/dl (8.5-10.1); Creatinine Clr Calc Pharmacy 113.8 ml/min; Est GFR (African American) 109.6; Est GFR (Non-African American) 94.6; Magnesium 1.7 mg/dl (1.8-2.4); Potassium 3.4 mmol/L (3.5-5.1)
[2019-04-27] MEDS ORDERED: MELOXICAM 7.5 MG TAB PO SCH (18:15)
[2019-04-27] MEDS ORDERED: POTASSIUM CHLORIDE 20 MEQ TABCR PO STA (18:21)
[2019-04-27] MEDS ORDERED: MAGNESIUM SULFATE / D5W 1 GM/100 ML BAG IV ONE (19:00)
[2019-04-27] MEDS ORDERED: LACTATED RINGER'S 1,000 ML IV ONE (23:14)
[2019-04-28 00:21] LABS: INR 1.2 (0.9-1.1); Prothrombin Time 11.7 Seconds (9.0-12.0)
[2019-04-28 00:26] LABS: Albumin Level 2.5 gm/dl (3.4-5.0); BUN Creatinine Ratio 8.8 (10-20); Calcium 8.6 mg/dl (8.5-10.1); Est GFR (African American) 98.3; Est GFR (Non-African American) 84.9; Magnesium 1.9 mg/dl (1.8-2.4); Potassium 3.6 mmol/L (3.5-5.1)
[2019-04-28 00:34] LABS: Albumin Globulin Ratio 0.6 (0.9-2); Bilirubin,Total 1.7 mg/dl (0.2-1); Globulin 4.4 gm/dl (2.5-4.0); Total Protein 6.9 gm/dl (6.4-8.2)
[2019-04-28] MEDS ORDERED: NSS + 20MEQ KCL 20 MEQ/1,000 ML BAG IV ONE (05:36)
--- NOTE | 2019-04-28 05:38 | Communication Note ---
Date of Service: April 28, 2019 Made aware by RN of fever spike last night. WBC 13 04/27 sodium 131 Cough unchanged as per RN Chest x-ray as per my interpretation : Elevated hemidiaphragm right, possible infiltrate right lower lobe AP Sepsis secondary to CAP Hyponatremia CS, check lactic acid Add Ceftriaxone to Doxycycline IVF, hold NSAIDs for now given hyponatremia Will relay to AM provider.
[2019-04-28 06:54] LABS: Appearance Urine Clear (Clear); Bacteria Urine Automated Negative (Negative); Bilirubin Urine Negative (Negative); Blood Urine Negative (Negative); Color Urine Dark Yellow; Glucose Urine UA Negative (Negative); Ketones Urine Negative (Negative); Leukocyte Esterase Urine Negative (Negative); Nitrite Urine Negative (Negative); Protein Urine Trace (Negative); RBC Urine Automated 0-4 /hpf (0-4); Specific Gravity Urine 1.014 (1.000-1.030); Urobilinogen Urine Positive (Negative)
--- NOTE | 2019-04-28 07:24 | XRay Report ---
XR chest 1V portable HISTORY: 64 years-old Male fever acute fever COMPARISON: Chest radiograph 04/25/2019 TECHNIQUE: Portable AP view of the chest FINDINGS: Cardiomediastinal and hilar silhouettes are unchanged. Mild right hemidiaphragmatic elevation with pr ogressive right greater basilar opacities. Mild subsegmental left basilar atelectasis. No pneumothora x, large pleural effusion or overt pulmonary edema. The bones appear grossly intact. IMPRESSION: Mild right hemidiaphragmatic elevation with right lung base opacities suggestive of atele ctasis versus pneumonitis. The above report was generated using voice recognition software. It may contain grammatical, syntax o r spelling errors. Electronically signed by: Santos Jc M.D. 04/28/2019 7:23 AM
[2019-04-28] MEDS: cefTRIAXone SODIUM 2,000 MG in DEXTROSE 5% 50 ML IV SCH (08:01)
[2019-04-28] MEDS: ATENOLOL 50 MG TABLET PO SCH (09:18)
[2019-04-28] MEDS: DOXYCYCLINE HYCLATE 100 MG CAP PO SCH ×2 (09:19→20:11)
[2019-04-28] MEDS: THIAMINE HCL 100 MG TAB PO SCH (09:19)
[2019-04-28] MEDS: MULTIVITAMIN TAB PO SCH (09:19)
[2019-04-28] MEDS: ENOXAPARIN INJ 40 MG/0.4 ML SYR SQ SCH (09:19)
[2019-04-28] MEDS: FOLIC ACID 1 MG TAB PO SCH (09:20)
--- NOTE | 2019-04-28 11:04 | Hospitalist Progress Note ---
Date of Service April 28, 2019 Assessment & Plan (1) Palpitations: and hypertension Multifactorial : Hypertensive urgency from alcohol withdrawal, missed beta-brendan dose Anxiety, personal stress, hypokalemia contributory Complicated bronchitis, no sepsis on admission however last evening (04/27), WBC elevated, then later at night temp.spiked fever 38.8 Celsius (UA negative, blood cltx - pending, CXR suggestive of pneumonitis) Pt likely has CAP - Ceftriaxone was added to doxycycline HTN from etoh withdrawal -Provided with oral Ativan as needed, and clonidine for uncontrolled hypertension -blood pressure then much improved -Restarted home beta-brendan, may need titration -Continue to closely monitor on telemetry -DT precautions, anxiolytic PRN -Follow LFTs, GI consult with progression Hypokalemia, Hypomagnesemia - replete and monitor Hyponatremia - Na 132 - will switch NSAIDs to topical for arthritic pain, and will cont. to monitor Hyperlipidemia on statin Rx Alcoholic hepatitis -Follow LFTs, GI consult with progression Complicated bronchitis -Continue doxycycline Leukocytosis - mild - increased from yesterday, patient already on doxycycline, for bronchitis - spiked fever at night 38.8C - blood cltx - pending, UA - negative, added ceftriaxone for CAP Mood disorder, stable, patient prefers stable off medications. Prediabetes -as per records -recent outpatient hemoglobin A1c of 6.20 December 2018 past tobacco abuse DVT prophylaxis: Lovenox subcu Full code Subjective Patient is currently sitting up in the chair, in no acute distress. However last night he spiked fever 38.8 Celsius, he remembers that he woke up sweaty. The night physician was contacted, obtain blood cultures, chest x-ray, UA. Patient is currently on doxycycline, he was also started on ceftriaxone. Currently patient denies any fevers, chills, headaches, chest pain, palpitations, shortness of breath, abdominal pain, nausea or vomiting. He also denies any visual or auditory hallucinations. He is continues to have arthritic pain in his wrists. At home he takes meloxicam for that prn, previously was evaluated by orthopedics. Review of Systems Review of Systems: All systems reviewed & are unremarkable except as noted in HPI & below Constitutional: + body aches (wrist pain); no fever, no chills and no fatigue Respiratory: + cough; no dyspnea Cardiovascular: no chest pain, no dyspnea on exertion, no palpitations and no edema Gastrointestinal: no abdominal pain, no nausea and no vomiting Physical Exam Physical Exam: GENERAL: Sitting up in the chair, in no acute distress HEENT: Normocephalic, atraumatic, PERRL, EOMI, pink palpebral conjunctivae NECK : Supple, normal to inspection, no lad CHEST : Normal to inspection HEART : RRR, no murmurs noted ABDOMEN: soft, non-distended, nontender to palpation, + bowel sounds EXTREMITIES : No LE swelling/tenderness,Moves all 4 extremities spontaneously and without difficulty SKIN: dry, warm, no rashes or lesions NEUROLOGIC : Alert and oriented x3, no facial asymmetry, speech fluent, moves all 4 extremities spontaneously Results & Data Vital Signs (Past 12 Hours) Vital Signs Temp Pulse Pulse Resp BP BP Pulse Ox 04/28/19 08:00 36.8 C 75 18 150/77 H 98 04/28/19 04:00 37.1 C 68 18 141/72 H 96 04/28/19 00:06 98 H 04/27/19 23:37 38.8 C H 99 H 19 130/77 95 Laboratory Results 04/28/19 04/27/19 04/27/19 Range/Units 06:30 23:40 23:40 WBC (4.8-10.8) K/uL RBC (4.7-6.1) M/uL Hgb (14.0-18.0) g/dL Hct (42-52) % MCV (80-100) fL MCH (25-34) pg MCHC (32-36) g/dL RDW Std Deviation (36.4-46.3) fL RDW Coeff of Chris (11.5-14.5) % Plt Count (130-400) K/uL MPV (7.4-10.4) fL Immature Gran % (Auto) % Neut % (Auto) % Lymph % (Auto) % [place] % (Auto) % Eos % (Auto) % Baso % (Auto) % Immature Gran # (Auto) (0.00-0.02) K/uL Neut # (Auto) (1.4-6.5) K/uL Lymph # (Auto) (1.2-3.4) K/uL [place] # (Auto) (0.11-0.59) K/uL Eos # (Auto) (0-0.5) K/uL Baso # (Auto) (0-0.2) K/uL PT (9.0-12.0) Seconds INR (0.9-1.1) Sodium 131 L (136-145) mmol/L Potassium 3.6 (3.5-5.1) mmol/L Chloride 102 (98-107) mmol/L Carbon Dioxide 24 (21-32) mmol/L Anion Gap 6.0 (3-11) BUN 8 (7-18) mg/dl Creatinine 0.95 (0.6-1.4) mg/dl Est Cr Clr Drug Dosing 97.0 ml/min Est GFR ( Amer) 98.3 Est GFR (Non-Af Amer) 84.9 BUN/Creatinine Ratio 8.8 L (10-20) Glucose 136 H (70-99) mg/dl Osmolality 275 L (280-300) mOsm/kg Lactate (0.4-2.0) mmol/L Calcium 8.6 (8.5-10.1) mg/dl Magnesium 1.9 (1.8-2.4) mg/dl Total Bilirubin 1.7 H D (0.2-1) mg/dl AST 29 (15-37) U/L ALT 32 (12-78) U/L Alkaline Phosphatase 76 (45-117) U/L Total Protein 6.9 (6.4-8.2) gm/dl Albumin 2.5 L (3.4-5.0) gm/dl Globulin 4.4 H (2.5-4.0) gm/dl Albumin/Globulin Ratio 0.6 L (0.9-2) Urine Color Dark Yellow Urine Appearance Clear (Clear) Urine pH 6.0 (4.5-7.5) Ur Specific [place] 1.014 (1.000-1.030) Urine Protein Trace H (Negative) Urine Glucose (UA) Negative (Negative) Urine Ketones Negative (Negative) Urine Blood Negative (Negative) Urine Nitrite Negative (Negative) Urine Bilirubin Negative (Negative) Urine Urobilinogen Positive H (Negative) Ur Leukocyte Esterase Negative (Negative) Urine WBC (Auto) 1-5 (0-5) /hpf Urine RBC (Auto) 0-4 (0-4) /hpf U Hyaline Cast (Auto) 1-5 (0-5) /lpf U Epithel Cells (Auto) 5-10 H (0-5) /lpf Urine Bacteria (Auto) Negative (Negative) 04/27/19 04/27/19 04/27/19 Range/Units 23:40 23:40 16:25 WBC (4.8-10.8) K/uL RBC (4.7-6.1) M/uL Hgb (14.0-18.0) g/dL Hct (42-52) % MCV (80-100) fL MCH (25-34) pg MCHC (32-36) g/dL RDW Std Deviation (36.4-46.3) fL RDW Coeff of Chris (11.5-14.5) % Plt Count (130-400) K/uL MPV (7.4-10.4) fL Immature Gran % (Auto) % Neut % (Auto) % Lymph % (Auto) % [place] % (Auto) % Eos % (Auto) % Baso % (Auto) % Immature Gran # (Auto) (0.00-0.02) K/uL Neut # (Auto) (1.4-6.5) K/uL Lymph # (Auto) (1.2-3.4) K/uL [place] # (Auto) (0.11-0.59) K/uL Eos # (Auto) (0-0.5) K/uL Baso # (Auto) (0-0.2) K/uL PT 11.7 (9.0-12.0) Seconds INR 1.2 H (0.9-1.1) Sodium 132 L (136-145) mmol/L Potassium 3.4 L (3.5-5.1) mmol/L Chloride 103 (98-107) mmol/L Carbon Dioxide 22 (21-32) mmol/L Anion Gap 7.0 (3-11) BUN 7 (7-18) mg/dl Creatinine 0.81 (0.6-1.4) mg/dl Est Cr Clr Drug Dosing 113.8 ml/min Est GFR ( Amer) 109.6 Est GFR (Non-Af Amer) 94.6 BUN/Creatinine Ratio 8.2 L (10-20) Glucose 141 H (70-99) mg/dl Osmolality (280-300) mOsm/kg Lactate 1.5 (0.4-2.0) mmol/L Calcium 8.7 (8.5-10.1) mg/dl Magnesium 1.7 L (1.8-2.4) mg/dl Total Bilirubin (0.2-1) mg/dl AST (15-37) U/L ALT (12-78) U/L Alkaline Phosphatase (45-117) U/L Total Protein (6.4-8.2) gm/dl Albumin (3.4-5.0) gm/dl Globulin (2.5-4.0) gm/dl Albumin/Globulin Ratio (0.9-2) Urine Color Urine Appearance (Clear) Urine pH (4.5-7.5) Ur Specific [place] (1.000-1.030) Urine Protein (Negative) Urine Glucose (UA) (Negative) Urine Ketones (Negative) Urine Blood (Negative) Urine Nitrite (Negative) Urine Bilirubin (Negative) Urine Urobilinogen (Negative) Ur Leukocyte Esterase (Negative) Urine WBC (Auto) (0-5) /hpf Urine RBC (Auto) (0-4) /hpf U Hyaline Cast (Auto) (0-5) /lpf U Epithel Cells (Auto) (0-5) /lpf Urine Bacteria (Auto) (Negative) 04/27/19 Range/Units 16:25 WBC 13.69 H (4.8-10.8) K/uL RBC 3.83 L (4.7-6.1) M/uL Hgb 12.7 L (14.0-18.0) g/dL Hct 37.1 L (42-52) % MCV 96.9 (80-100) fL MCH 33.2 (25-34) pg MCHC 34.2 (32-36) g/dL RDW Std Deviation 45.1 (36.4-46.3) fL RDW Coeff of Chris 12.8 (11.5-14.5) % Plt Count 146 (130-400) K/uL MPV 9.8 (7.4-10.4) fL Immature Gran % (Auto) 0.4 % Neut % (Auto) 66.6 % Lymph % (Auto) 19.1 % [place] % (Auto) 13.5 % Eos % (Auto) 0.2 % Baso % (Auto) 0.2 % Immature Gran # (Auto) 0.05 H (0.00-0.02) K/uL Neut # (Auto) 9.11 H (1.4-6.5) K/uL Lymph # (Auto) 2.62 (1.2-3.4) K/uL [place] # (Auto) 1.85 H (0.11-0.59) K/uL Eos # (Auto) 0.03 (0-0.5) K/uL Baso # (Auto) 0.03 (0-0.2) K/uL PT (9.0-12.0) Seconds INR (0.9-1.1) Sodium (136-145) mmol/L Potassium (3.5-5.1) mmol/L Chloride (98-107) mmol/L Carbon Dioxide (21-32) mmol/L Anion Gap (3-11) BUN (7-18) mg/dl Creatinine (0.6-1.4) mg/dl Est Cr Clr Drug Dosing ml/min Est GFR ( Amer) Est GFR (Non-Af Amer) BUN/Creatinine Ratio (10-20) Glucose (70-99) mg/dl Osmolality (280-300) mOsm/kg Lactate (0.4-2.0) mmol/L Calcium (8.5-10.1) mg/dl Magnesium (1.8-2.4) mg/dl Total Bilirubin (0.2-1) mg/dl AST (15-37) U/L ALT (12-78) U/L Alkaline Phosphatase (45-117) U/L Total Protein (6.4-8.2) gm/dl Albumin (3.4-5.0) gm/dl Globulin (2.5-4.0) gm/dl Albumin/Globulin Ratio (0.9-2) Urine Color Urine Appearance (Clear) Urine pH (4.5-7.5) Ur Specific [place] (1.000-1.030) Urine Protein (Negative) Urine Glucose (UA) (Negative) Urine Ketones (Negative) Urine Blood (Negative) Urine Nitrite (Negative) Urine Bilirubin (Negative) Urine Urobilinogen (Negative) Ur Leukocyte Esterase (Negative) Urine WBC (Auto) (0-5) /hpf Urine RBC (Auto) (0-4) /hpf U Hyaline Cast (Auto) (0-5) /lpf U Epithel Cells (Auto) (0-5) /lpf Urine Bacteria (Auto) (Negative) Medications Administered Current Inpatient Medications Acetaminophen (Tylenol) 325 mg PO Q6H PRN PRN Reason: Pain or Fever Stop: 05/26/19 04:32 Last Admin: 04/27/19 22:54 Dose: 325 mg Documented by: Atenolol (Tenormin) 50 mg PO DAILY [facility] Stop: 05/26/19 01:44 Last Admin: 04/28/19 09:18 Dose: 50 mg Documented by: Clonidine HCl (Catapres) 0.1 mg PO TID PRN PRN Reason: Hypertension Stop: 05/26/19 14:43 Last Admin: 04/27/19 13:19 Dose: 0.1 mg Documented by: Diclofenac Sodium (Voltaren 1% Top) 4 gm EXT Q4H [facility] Stop: 05/28/19 10:59 Doxycycline Hyclate (Vibramycin) 100 mg PO BID [facility] Stop: 05/03/19 04:32 Last Admin: 04/28/19 09:19 Dose: 100 mg Documented by: Enoxaparin Sodium (Lovenox) 40 mg SQ QAM [facility] Stop: 05/26/19 08:59 Last Admin: 04/28/19 09:19 Dose: 40 mg Documented by: Folic Acid (Folvite) 1 mg PO QAM [facility] Stop: 05/27/19 08:59 Last Admin: 04/28/19 09:20 Dose: 1 mg Documented by: Gabapentin (Neurontin) 600 mg PO Q12H [facility] Stop: 04/28/19 12:01 Last Admin: 04/27/19 23:56 Dose: 600 mg Documented by: Gabapentin (Neurontin) 600 mg PO Q24H [facility] Stop: 04/29/19 12:01 Lorazepam (Ativan) 1 mg in 2 mls @ 2 mls/min IV UD PRN; Protocol PRN Reason: EtOH Withdrawl AWSS Score 6,7 Stop: 05/26/19 04:32 Lorazepam (Ativan) 2 mg in 4 mls @ 4 mls/min IV UD PRN; Protocol PRN Reason: EtOH Withdrawl AWSS Score 8,9 Stop: 05/26/19 04:32 Lorazepam (Ativan) 3 mg in 6 mls @ 4 mls/min IV ONCE PRN; Protocol PRN Reason: EtOH Withdrawl AWSS Score >=10 Stop: 05/26/19 04:32 Potassium Chloride/Sodium Chloride (Normal Saline W/20 Meq Kcl) 20 meq in 1,000 mls @ 80 mls/hr IV .[id number] ONE Stop: 04/28/19 18:05 Last Admin: 04/28/19 06:33 Dose: 80 mls/hr Documented by: Ceftriaxone Sodium 2,000 mg/ (Dextrose) 70 mls @ 100 mls/hr IV Q24H [facility]; Protocol Stop: 05/05/19 06:59 Last Infusion: 04/28/19 09:20 Dose: Infused Documented by: Ipratropium [place] (Atrovent 0.02% 0.5mg/2.5ml) 0.5 mg INH Q4H PRN PRN Reason: Shortness Of Breath Or Wheezing Stop: 05/26/19 04:32 Levalbuterol HCl (Xopenex 1.25mg/0.5ml Neb) 1.25 mg INH Q4H PRN PRN Reason: Shortness Of Breath Or Wheezing Stop: 05/26/19 04:32 Lorazepam (Ativan) 1 mg PO Q4H PRN PRN Reason: Anxiety Stop: 05/26/19 13:40 Last Admin: 04/26/19 13:51 Dose: 1 mg Documented by: Meloxicam (Mobic) 7.5 mg PO [facility] Stop: 05/27/19 18:14 Last Admin: 04/27/19 19:26 Dose: 7.5 mg Documented by: Multivitamins (Multivitamin Tab) 1 tab PO [facility] Stop: 05/26/19 08:59 Last Admin: 04/28/19 09:19 Dose: 1 tab Documented by: Thiamine HCl (Vitamin B-1) 100 mg PO [facility] Stop: 05/27/19 08:59 Last Admin: 04/28/19 09:19 Dose: 100 mg Documented by:
[2019-04-28 11:17] LABS: Basophils # (auto) 0.03 K/uL (0-0.2); Basophils % (auto) 0.3 %; Eosinophils # (auto) 0.05 K/uL (0-0.5); Eosinophils % (auto) 0.5 %; Hemoglobin 11.9 g/dL (14.0-18.0); Immature Granulocytes # (auto) 0.02 K/uL (0.00-0.02); Immature Granulocytes % (auto) 0.2 %; Lymphocytes % (auto) 16.2 %; Mean Platelet Volume 9.6 fL (7.4-10.4); Monocytes # (auto) 1.09 K/uL (0.11-0.59); Monocytes % (auto) 9.8 %; Platelet Count 146 K/uL (130-400); RDW Coefficient of Variation 12.7 % (11.5-14.5); RDW Standard Deviation 44.8 fL (36.4-46.3); Red Blood Count 3.61 M/uL (4.7-6.1); White Blood Count 11.09 K/uL (4.8-10.8)
[2019-04-28 11:43] LABS: Albumin Level 2.5 gm/dl (3.4-5.0); BUN Creatinine Ratio 11.7 (10-20); Calcium 8.7 mg/dl (8.5-10.1); Creatinine Clr Calc Pharmacy 118.3 ml/min; Est GFR (African American) 111.3; Est GFR (Non-African American) 96.1; Potassium 3.5 mmol/L (3.5-5.1)
[2019-04-28] MEDS: DICLOFENAC SOD 1% GEL 100 GM TUBE EXT SCH ×4 (11:48→20:15)
[2019-04-28] MEDS: GABAPENTIN 600 MG TAB PO SCH (11:48)
[2019-04-28 11:49] LABS: Albumin Globulin Ratio 0.6 (0.9-2); Bilirubin,Total 1.1 mg/dl (0.2-1); Globulin 4.5 gm/dl (2.5-4.0)
[2019-04-28] MEDS ORDERED: POTASSIUM CHLORIDE 20 MEQ TABCR PO STA (14:54)
[2019-04-28] MEDS: guaiFENesin 600 MG TABCR PO SCH (20:11)
[2019-04-28] MEDS: ACETAMINOPHEN 325 MG TAB PO PRN (20:14)
[2019-04-29 06:04] LABS: Basophils % (auto) 0.3 %; Eosinophils % (auto) 0.8 %; Hematocrit (blood only) 33.2 % (42-52); Hemoglobin 11.7 g/dL (14.0-18.0); Immature Granulocytes % (auto) 0.3 %; Lymphocytes # (auto) 2.12 K/uL (1.2-3.4); Mean Corpuscular Hemoglobin 34.7 pg (25-34); Mean Corpuscular Hgb Conc 35.2 g/dL (32-36); Mean Corpuscular Volume 98.5 fL (80-100); Mean Platelet Volume 9.4 fL (7.4-10.4); Monocytes % (auto) 11.7 %; Neutrophils % (auto) 68.9 %; Platelet Count 176 K/uL (130-400); RDW Coefficient of Variation 12.7 % (11.5-14.5); RDW Standard Deviation 45.6 fL (36.4-46.3); Red Blood Count 3.37 M/uL (4.7-6.1); White Blood Count 11.75 K/uL (4.8-10.8)
[2019-04-29 06:05] LABS: Basophils # (auto) 0.03 K/uL (0-0.2); Eosinophils # (auto) 0.09 K/uL (0-0.5); Immature Granulocytes # (auto) 0.04 K/uL (0.00-0.02); Monocytes # (auto) 1.37 K/uL (0.11-0.59)
[2019-04-29] MEDS: cefTRIAXone SODIUM 2,000 MG in DEXTROSE 5% 50 ML IV SCH (06:18)
[2019-04-29 06:35] LABS: BUN Creatinine Ratio 14.6 (10-20); Calcium 8.7 mg/dl (8.5-10.1); Creatinine Clr Calc Pharmacy 133.6 ml/min; Est GFR (African American) 117.1; Magnesium 2.1 mg/dl (1.8-2.4); Potassium 3.7 mmol/L (3.5-5.1)
[2019-04-29] MEDS: THIAMINE HCL 100 MG TAB PO SCH (08:08)
[2019-04-29] MEDS: DOXYCYCLINE HYCLATE 100 MG CAP PO SCH ×2 (08:08→20:10)
[2019-04-29] MEDS: FOLIC ACID 1 MG TAB PO SCH (08:08)
[2019-04-29] MEDS: MULTIVITAMIN TAB PO SCH (08:08)
[2019-04-29] MEDS: ENOXAPARIN INJ 40 MG/0.4 ML SYR SQ SCH (08:08)
[2019-04-29] MEDS: ATENOLOL 50 MG TABLET PO SCH (08:08)
[2019-04-29] MEDS: guaiFENesin 600 MG TABCR PO SCH ×2 (08:08→20:10)
[2019-04-29] MEDS: DICLOFENAC SOD 1% GEL 100 GM TUBE EXT SCH ×4 (08:09→20:11)
--- NOTE | 2019-04-29 09:54 | Hospitalist Progress Note ---
Date of Service April 29, 2019 Assessment & Plan (1) Palpitations: and hypertension Multifactorial : Hypertensive urgency from alcohol withdrawal, missed beta-brendan dose prior to admission Anxiety, personal stress, hypokalemia contributory - received ativan and clonidine prn - will start amlodipine 2.5 mg AM Complicated bronchitis, no sepsis on admission however in the evening of 12/), WBC elevated, then later at night temp.spiked fever 38.8 Celsius (UA negative, blood cltx - pending, CXR suggestive of pneumonitis) Pt likely has CAP - Ceftriaxone was added to doxycycline HTN from etoh withdrawal -Provided with oral Ativan as needed, and clonidine for uncontrolled hypertension -blood pressure then much improved -Restarted home beta-brendan, may need titration - started on amlodipine 2.5 mg qAM -Continue to closely monitor on telemetry -DT precautions, anxiolytic PRN -Follow LFTs, GI consult with progression Hypokalemia, Hypomagnesemia - replete and monitor Hyponatremia - now resolved - Na 132, now Na 136 - switched NSAIDs to topical for arthritic pain, and will cont. to monitor Hyperlipidemia on statin Rx Alcoholic hepatitis -Follow LFTs, GI consult with progression -LFTs not elevated, Tbili elevated one day, then downgrade Anemia - normocytic - Hgb slowly downtrending, no signs of bleeding, poss. nutritious cause/ liver dis. from etoh use - will obtain stool occult blood test and iron panel Complicated bronchitis -Continue doxycycline and ceftriaxone Leukocytosis - mild - patient already on doxycycline, for bronchitis - spiked fever 38.8C - blood cltx - pending, UA - negative, added ceftriaxone for CAP Mood disorder, stable, patient prefers stable off medications. Prediabetes -as per records -recent outpatient hemoglobin A1c of 6.20 December 2018 past tobacco abuse DVT prophylaxis: Lovenox subcu Full code Subjective Patient is sitting in chair, in no acute distress, comfortable. Currently denies any fevers, chills, chest pain, shortness of breath, abdominal pain, nausea, vomiting, headache, dizziness Spiked fever last night again, currently on ceftriaxone and doxycycline Blood cultures from previous night still pending Anemia work -up, iron studies, fecal occult test Review of Systems Review of Systems: As per HPI, all 10 systems reviewed, all other ROS negative Constitutional: + body aches (wrist pain); no fever, no chills and no fatigue Respiratory: + cough; no dyspnea Cardiovascular: no chest pain, no dyspnea on exertion, no palpitations and no edema Gastrointestinal: no abdominal pain, no nausea and no vomiting Physical Exam Physical Exam: GENERAL: Sitting up in the chair, in no acute distress HEENT: Normocephalic, atraumatic, PERRL, EOMI, pink palpebral conjunctivae NECK : Supple, normal to inspection, no lad CHEST : Normal to inspection HEART : RRR, no murmurs noted ABDOMEN: soft, non-distended, nontender to palpation, + bowel sounds EXTREMITIES : No LE swelling/tenderness,Moves all 4 extremities spontaneously and without difficulty SKIN: dry, warm, no rashes or lesions NEUROLOGIC : Alert and oriented x3, no facial asymmetry, speech fluent, moves all 4 extremities spontaneously Results & Data Vital Signs (Past 12 Hours) Vital Signs Temp Pulse Pulse Resp BP BP Pulse Ox 04/29/19 08:36 76 04/29/19 08:00 36.5 C 79 18 168/94 H 94 04/29/19 04:00 37.2 C 80 20 154/87 H 95 04/29/19 00:40 77 04/29/19 00:00 37.1 C 79 20 149/75 H 97 Laboratory Results 04/29/19 04/29/19 04/28/19 Range/Units 05:35 05:35 11:06 WBC 11.75 H (4.8-10.8) K/uL RBC 3.37 L (4.7-6.1) M/uL Hgb 11.7 L (14.0-18.0) g/dL Hct 33.2 L (42-52) % MCV 98.5 (80-100) fL MCH 34.7 H (25-34) pg MCHC 35.2 (32-36) g/dL RDW Std Deviation 45.6 (36.4-46.3) fL RDW Coeff of Chris 12.7 (11.5-14.5) % Plt Count 176 (130-400) K/uL MPV 9.4 (7.4-10.4) fL Immature Gran % (Auto) 0.3 % Neut % (Auto) 68.9 % Lymph % (Auto) 18.0 % [place] % (Auto) 11.7 % Eos % (Auto) 0.8 % Baso % (Auto) 0.3 % Immature Gran # (Auto) 0.04 H (0.00-0.02) K/uL Neut # (Auto) 8.10 H (1.4-6.5) K/uL Lymph # (Auto) 2.12 (1.2-3.4) K/uL [place] # (Auto) 1.37 H (0.11-0.59) K/uL Eos # (Auto) 0.09 (0-0.5) K/uL Baso # (Auto) 0.03 (0-0.2) K/uL Sodium 136 132 L (136-145) mmol/L Potassium 3.7 3.5 (3.5-5.1) mmol/L Chloride 106 103 (98-107) mmol/L Carbon Dioxide 21 24 (21-32) mmol/L Anion Gap 9.0 6.0 (3-11) BUN 10 9 (7-18) mg/dl Creatinine 0.69 0.78 (0.6-1.4) mg/dl Est Cr Clr Drug Dosing 133.6 118.3 ml/min Est GFR ( Amer) 117.1 111.3 Est GFR (Non-Af Amer) 101.0 96.1 BUN/Creatinine Ratio 14.6 11.7 (10-20) Glucose 106 H 134 H (70-99) mg/dl Calcium 8.7 8.7 (8.5-10.1) mg/dl Magnesium 2.1 (1.8-2.4) mg/dl Total Bilirubin 1.1 H (0.2-1) mg/dl AST 26 (15-37) U/L ALT 27 (12-78) U/L Alkaline Phosphatase 76 (45-117) U/L Total Protein 7.0 (6.4-8.2) gm/dl Albumin 2.5 L (3.4-5.0) gm/dl Globulin 4.5 H (2.5-4.0) gm/dl Albumin/Globulin Ratio 0.6 L (0.9-2) 04/28/19 Range/Units 11:06 WBC 11.09 H (4.8-10.8) K/uL RBC 3.61 L (4.7-6.1) M/uL Hgb 11.9 L (14.0-18.0) g/dL Hct 35.0 L (42-52) % MCV 97.0 (80-100) fL MCH 33.0 (25-34) pg MCHC 34.0 (32-36) g/dL RDW Std Deviation 44.8 (36.4-46.3) fL RDW Coeff of Chris 12.7 (11.5-14.5) % Plt Count 146 (130-400) K/uL MPV 9.6 (7.4-10.4) fL Immature Gran % (Auto) 0.2 % Neut % (Auto) 73.0 % Lymph % (Auto) 16.2 % [place] % (Auto) 9.8 % Eos % (Auto) 0.5 % Baso % (Auto) 0.3 % Immature Gran # (Auto) 0.02 (0.00-0.02) K/uL Neut # (Auto) 8.10 H (1.4-6.5) K/uL Lymph # (Auto) 1.80 (1.2-3.4) K/uL [place] # (Auto) 1.09 H (0.11-0.59) K/uL Eos # (Auto) 0.05 (0-0.5) K/uL Baso # (Auto) 0.03 (0-0.2) K/uL Sodium (136-145) mmol/L Potassium (3.5-5.1) mmol/L Chloride (98-107) mmol/L Carbon Dioxide (21-32) mmol/L Anion Gap (3-11) BUN (7-18) mg/dl Creatinine (0.6-1.4) mg/dl Est Cr Clr Drug Dosing ml/min Est GFR ( Amer) Est GFR (Non-Af Amer) BUN/Creatinine Ratio (10-20) Glucose (70-99) mg/dl Calcium (8.5-10.1) mg/dl Magnesium (1.8-2.4) mg/dl Total Bilirubin (0.2-1) mg/dl AST (15-37) U/L ALT (12-78) U/L Alkaline Phosphatase (45-117) U/L Total Protein (6.4-8.2) gm/dl Albumin (3.4-5.0) gm/dl Globulin (2.5-4.0) gm/dl Albumin/Globulin Ratio (0.9-2) Medications Administered Current Inpatient Medications Acetaminophen (Tylenol) 325 mg PO Q6H PRN PRN Reason: Pain or Fever Stop: 05/26/19 04:32 Last Admin: 04/28/19 20:14 Dose: 325 mg Documented by: Atenolol (Tenormin) 50 mg PO DAILY [facility] Stop: 05/26/19 01:44 Last Admin: 04/29/19 08:08 Dose: 50 mg Documented by: Clonidine HCl (Catapres) 0.1 mg PO TID PRN PRN Reason: Hypertension Stop: 05/26/19 14:43 Last Admin: 04/27/19 13:19 Dose: 0.1 mg Documented by: Diclofenac Sodium (Voltaren 1% Top) 4 gm EXT QID [facility] Stop: 05/28/19 10:59 Last Admin: 04/29/19 08:09 Dose: Not Given Documented by: Doxycycline Hyclate (Vibramycin) 100 mg PO BID [facility] Stop: 05/03/19 04:32 Last Admin: 04/29/19 08:08 Dose: 100 mg Documented by: Enoxaparin Sodium (Lovenox) 40 mg SQ QAM [facility] Stop: 05/26/19 08:59 Last Admin: 04/29/19 08:08 Dose: 40 mg Documented by: Folic Acid (Folvite) 1 mg PO QAM [facility] Stop: 05/27/19 08:59 Last Admin: 04/29/19 08:08 Dose: 1 mg Documented by: Gabapentin (Neurontin) 600 mg PO Q24H [facility] Stop: 04/29/19 12:01 Guaifenesin (Mucinex) 600 mg PO Q12 [facility] Stop: 05/28/19 20:59 Last Admin: 04/29/19 08:08 Dose: 600 mg Documented by: Lorazepam (Ativan) 1 mg in 2 mls @ 2 mls/min IV UD PRN; Protocol PRN Reason: EtOH Withdrawl AWSS Score 6,7 Stop: 05/26/19 04:32 Lorazepam (Ativan) 2 mg in 4 mls @ 4 mls/min IV UD PRN; Protocol PRN Reason: EtOH Withdrawl AWSS Score 8,9 Stop: 05/26/19 04:32 Lorazepam (Ativan) 3 mg in 6 mls @ 4 mls/min IV ONCE PRN; Protocol PRN Reason: EtOH Withdrawl AWSS Score >=10 Stop: 05/26/19 04:32 Ceftriaxone Sodium 2,000 mg/ (Dextrose) 70 mls @ 100 mls/hr IV Q24H [facility]; Protocol Stop: 05/05/19 06:59 Last Infusion: 04/29/19 07:03 Dose: Infused Documented by: Ipratropium [place] (Atrovent 0.02% 0.5mg/2.5ml) 0.5 mg INH Q4H PRN PRN Reason: Shortness Of Breath Or Wheezing Stop: 05/26/19 04:32 Levalbuterol HCl (Xopenex 1.25mg/0.5ml Neb) 1.25 mg INH Q4H PRN PRN Reason: Shortness Of Breath Or Wheezing Stop: 05/26/19 04:32 Lorazepam (Ativan) 1 mg PO Q4H PRN PRN Reason: Anxiety Stop: 05/26/19 13:40 Last Admin: 04/26/19 13:51 Dose: 1 mg Documented by: Multivitamins (Multivitamin Tab) 1 tab PO [facility] Stop: 05/26/19 08:59 Last Admin: 04/29/19 08:08 Dose: 1 tab Documented by: Thiamine HCl (Vitamin B-1) 100 mg PO [facility] Stop: 05/27/19 08:59 Last Admin: 04/29/19 08:08 Dose: 100 mg Documented by:
[2019-04-29] MEDS ORDERED: AMLODIPINE BESYLATE 5 MG TAB PO SCH (09:55)
[2019-04-29] MEDS ORDERED: POTASSIUM CHLORIDE 20 MEQ TABCR PO STA (10:03)
[2019-04-29 10:26] LABS: Reticulocytes # 0.11 10^6/uL (0.02-0.10)
[2019-04-29 10:47] LABS: Albumin Level 2.6 gm/dl (3.4-5.0); Bilirubin Direct 0.5 mg/dl (0-0.2); Bilirubin,Total 0.9 mg/dl (0.2-1); Total Protein 7.4 gm/dl (6.4-8.2)
[2019-04-29 10:48] LABS: Ferritin 682.8 ng/ml (8-388)
[2019-04-29] MEDS ORDERED: GABAPENTIN 600 MG TAB PO SCH (12:00)
[2019-04-29 14:16] LABS: Iron 29 mcg/dl (35-175); Transferrin 152 mg/dl (200-360); Transferrin Percent Saturation 13 % (20-50)
[2019-04-29] MEDS: cloNIDine HCL 0.1 MG TAB PO PRN (19:24)
[2019-04-29] MEDS ORDERED: AMLODIPINE BESYLATE 5 MG TAB PO ONE (20:31)
--- NOTE | 2019-04-29 20:32 | Communication Note ---
Date of Service: April 29, 2019 Made aware by RN of uncontrolled blood pressure. SBP 140-200s the whole day. Patient asymptomatic as per RN. AP Hypertensive urgency History of alcohol abuse Clonidine patch for now. Will relay to AM provider.
[2019-04-29] MEDS ORDERED: ATENOLOL 50 MG TABLET PO SCH (20:45)
[2019-04-29] MEDS ORDERED: cloNIDine HCL 0.1 MG/24 HR TRANSDERM SYS TD SCH (21:00)
[2019-04-30] MEDS: CHECK CLONIDINE PATCH PLACEMENT SCH ×3 (00:32→16:05)
[2019-04-30] MEDS: cefTRIAXone SODIUM 2,000 MG in DEXTROSE 5% 50 ML IV SCH (06:04)
--- NOTE | 2019-04-30 07:00 | Hospitalist Progress Note ---
Date of Service April 30, 2019 Results & Data Vital Signs (Past 12 Hours) Vital Signs Temp Pulse Pulse Resp BP BP Pulse Ox 04/30/19 03:33 37.4 C 83 17 126/67 97 04/29/19 23:41 37.0 C 73 20 138/65 97 04/29/19 22:20 67 04/29/19 20:19 206/103 H 209/118 H 04/29/19 19:26 36.7 C 90 18 192/107 H 98
[2019-04-30 07:34] LABS: Hematocrit (blood only) 33.7 % (42-52); Hemoglobin 11.6 g/dL (14.0-18.0)
[2019-04-30] MEDS: DOXYCYCLINE HYCLATE 100 MG CAP PO SCH ×2 (08:03→19:16)
[2019-04-30] MEDS: FOLIC ACID 1 MG TAB PO SCH (08:07)
[2019-04-30] MEDS: guaiFENesin 600 MG TABCR PO SCH (08:07)
[2019-04-30] MEDS: THIAMINE HCL 100 MG TAB PO SCH (08:07)
[2019-04-30] MEDS: ENOXAPARIN INJ 40 MG/0.4 ML SYR SQ SCH (08:08)
[2019-04-30] MEDS: MULTIVITAMIN TAB PO SCH (08:08)
[2019-04-30] MEDS: DICLOFENAC SOD 1% GEL 100 GM TUBE EXT SCH ×3 (08:09→16:05)
[2019-04-30] MEDS: ACETAMINOPHEN 325 MG TAB PO PRN (08:12)
[2019-04-30] MEDS ORDERED: AMLODIPINE BESYLATE 5 MG TAB PO SCH ×2 (09:00)
[2019-04-30] MEDS ORDERED: ATENOLOL 50 MG TABLET PO SCH (09:00)
[2019-04-30] MEDS: LORazepam 1 MG TAB PO PRN (12:29)
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
== END 2019-04-30 19:16 | disposition home or self-care (01) | DRG 304 ==
LOC: ED 22:31 → 2N 04-26 04:04